=== PATIENT | male | born 1995 | race Two or more races ===

== ENCOUNTER 2022-11-25 16:08 | Emergency (ER) | payer MEDICAID ==
[~2022-11-25] VITALS: Ht 180.3 cm; Wt 151.0 kg
[2022-11-25 16:46] VITALS: BP 113/64
[2022-11-25] MEDS ORDERED: NAPR-1176 PO (19:11)
== END 2022-11-25 19:23 | disposition home or self-care (01) ==
LOC: ER 17:02
DX: S39.012A Strain of muscle, fascia and tendon of lower back, initial encounter (principal); E11.9 Type 2 diabetes mellitus without complications; X58.XXXA Exposure to other specified factors, initial encounter; Y93.89 Activity, other specified; Y92.89 Other specified places as the place of occurrence of the external cause; Y99.8 Other external cause status
CPT/HCPCS: 99282